=== PATIENT | female | born 1990 | race African-American/Black ===

== ENCOUNTER 2016-08-14 07:40 | Emergency (ER) | payer OTHER ==
--- NOTE | ~2016-08-14 | CR109 ---
[facility] A Service of [facility] RADIOLOGY TEXT RESULTS PATIENT: GINGER VILLALOBOS LOCATION: CFTX : [birth year] UNIT #: [id number] AGE: [address]: Keiry Moseley SEX: F ORDER DR: [id number] [facility] [address] [place], [place] [address] [id number] MR#: [id number] Acc #: [id number] NAME: GINGER VILLALOBOS : 1990 SEX: F STUDY DATE/TIME: 08/14/2016 7:55 UNIT: [facility] ROOM: STUDY DESCRIPTION: CR Finger 2 View 2nd Rt Attending Physician: Keiry Moseley P.A.-C. Ordering Physician: Keiry Moseley P.A.-C. Primary Care Physician: Primary Care Physician No MEDICAL IMAGING REPORT This report is preliminary unless electronic signature is present EXAM Right second digit finger series, 08/14/2016 INDICATION 26-year-old female with history of trauma, pain and swelling, unable to straighten the finger. Symptoms for a week. Car door shut on the finger a week ago. TECHNIQUE 3 views of the right second digit. COMPARISON No comparisons FINDINGS No acute fracture. Soft tissues within normal limits. No retained opaque foreign body. IMPRESSION Negative. Dictated by... Robbin Quintana M.D. THIS IS AN ELECTRONICALLY VERIFIED REPORT Robbin Quintana M.D. at 08/14/2016 9:56 AM Klaus TD: 08/14/2016 09:23 JOB #: [id number] MEDICAL IMAGING REPORT Page 1 of 1 COPY
== END 2016-08-14 08:37 | disposition home or self-care (01) ==
LOC: CED 07:40 → CFTX 07:40
DX: S67.190A Crushing injury of right index finger, initial encounter (principal); W22.8XXA Striking against or struck by other objects, initial encounter; Y92.099 Unspecified place in other non-institutional residence as the place of occurrence of the external cause
CPT/HCPCS: 29130; 73140; 99283

== ENCOUNTER 2016-08-21 04:40 | Emergency (ER) | payer OTHER | END 2016-08-21 07:25 | disposition home or self-care (01) | LOC: CED 04:40 | DX: L03.011 Cellulitis of right finger (principal); W22.8XXA Striking against or struck by other objects, initial encounter; Y92.009 Unspecified place in unspecified non-institutional (private) residence as the place of occurrence of the external cause | CPT/HCPCS: 10060; 87070; 87077; 87186; 87205; 99283 ==

== ENCOUNTER 2016-08-26 22:53 | Emergency (ER) | payer OTHER | END 2016-08-27 01:55 | disposition home or self-care (01) | LOC: CED 22:53 | DX: R10.13 Epigastric pain (principal); R11.0 Nausea | CPT/HCPCS: 84703; 99284 ==